=== PATIENT | female | born 1965 | race Hispanic/Latino ===

== ENCOUNTER 2017-01-26 22:58 | Emergency (ER) | payer OTHER ==
[~2017-01-26] VITALS: Ht 160 cm; Wt 88.6 kg
[~2017-01-26 22:58] MED LIST: KETO10TA PO; OMEP20CA11 PO
[2017-01-26 23:09] VITALS: BP 122/71; PULSE 74; RESP 16
[2017-01-27] MEDS ORDERED: HYDROmorphone 0.5 mg/0.5 mL iSecure Syringe IVPUSH PRN (00:25)
[2017-01-27] MEDS ORDERED: 0.9% Sodium Chloride 1,000 ML IV ONE (00:25)
[2017-01-27] MEDS ORDERED: Ondansetron 2 mg/mL 2 mL Inj IVPUSH PRN (00:25)
--- NOTE | 2017-01-27 00:25 | ED.REPORT ---
HPI-Abd Pain F 40 and Over Date of Service Jan 27, 2017 ED Provider: Gerardo Stinson DO Pt is a prediabetic 51 year old female with a recent cholecystectomy on 01/22/17 who presents to the ED complaining of abdominal pain onset yesterday. She c/o associated headache and nausea. She denies vomiting, diarrhea, , and fever. She denies any chest pain or shortness of breath. She denies any pleuritic symptoms. Nursing Notes Stated Complaint: POST OP ABDOMINAL AND CHEST PAIN Chief Complaint: Female Abdominal Pain Nursing Notes Reviewed: Yes Allergies: Coded Allergies: Iodinated Contrast- Oral and IV Dye (Verified Allergy, Mild, ITCHING, ) Had slight itching and scratchy throat after CT scan Scheduled Omeprazole (Omeprazole) 20 Mg Capsule.dr 20 MG PO DAILY Scheduled PRN Ketorolac Tromethamine (Ketorolac Tromethamine) 10 Mg Tablet 10 MG PO Q12H PRN PRN For Pain General Time Seen by MD: 00:24 Chief Complaint Abdominal pain Hx Obtained From: Patient Arrived By: Walk-in Sudden in Onset?: No Onset Occurred: Yesterday Symptom Duration: Since onset Location: : Abdomen upper Quality: Painful, Pressure Severity: Current: Moderate Severity: Maximum: Moderate Recent Healthcare: Recent doctor visit Similar Sx Previous: No Past Medical History Past Medical History Prediabetic Past Surgical History Arm surgery Tubal ligation Cholcystectomy on 01/22/17 RUE Family History Noncontributory Smoking History Former Smoker Social History Alcohol Use: Denies alcohol use Drug Use: Denies drug use Other Social History: Good social support, Local resident Ambulatory Status Independent Review of Systems Denies Constitutional: Denies: Fever Cardiovascular: Denies: Chest pain GI: Reports: Abdominal pain, Denies: Diarrhea, Vomiting Complete sys rev & neg: except as marked. Neurologic: Reports: Dizziness, Headache Physical Exam Vital Signs Vital Signs (First) Date Time Temp Pulse Resp B/P Pulse Ox O2 Delivery O2 Flow Rate FiO2 01/26/17 23:09 36.1 74 16 122/71 Room Air 01/27/17 03:30 97 Initial VS: Reviewed Head / Eyes: Atraumatic, Normocephalic, PERRL ENT: Mucous membranes moist, Conjunctiva normal, No scleral icterus Neck: Supple, Full range of motion Extremities: Vascular intact, Neuro intact Neurologic: Alert, Oriented, Nonfocal Psychiatric: Mood/affect normal, Behavior normal General/Constitutional: Awake, Alert, Cooperative, Not toxic appearing Respiratory / Chest: Atraumatic, Breath sounds NL, Breath sounds = bilat Cardiovascular: Heart rate NL, Regular rhythm, Heart sounds NL Abdomen: Atraumatic, Soft Moderate upper quadrant tenderness. Bruising near the umbilical. Ecchymosis infra umbilical access site. Back: Atraumatic, Inspection NL, Full range of motion Skin: Atraumatic, Color NL, Warm, Dry, Intact Well perfused Interpretation & Diagnostics Lab Results Interpretation Result Diagram: 01/27/17 0105 01/27/17 0105 Test 01/27/17 01:05 01/27/17 02:43 White Blood Count 13.4th/mm3 (3.8-10.1) Red Blood Count 4.60mil/mm3 (3.90-5.20) Hemoglobin 13.3g/dL (12.0-15.6) Hematocrit 40.3% (35.0-46.0) Mean Corpuscular Volume 87.6fL (81-100) Mean Corpuscular Hemoglobin 28.9pg (27.0-35.0) Mean Corpuscular Hemoglobin Concent 33.0% (32.0-37.0) Red Cell Distribution Width 14.0% (12.3-15.4) Platelet Count 236bil/L (150-400) Neutrophils (%) (Auto) 72.7% (40-74) Lymphocytes (%) (Auto) 14.1% (14-46) Monocytes (%) (Auto) 5.5% (4-12) Eosinophils (%) (Auto) 7.0% (0-5) Basophils (%) (Auto) 0.4% (0-3) Urine Color Yellow (YELLOW) Urine Appearance Clear (CLEAR,HAZY) Urine pH 6.5 (5.0-8.0) Urine Specific [place] 1.005 (1.003-1.035) Urine Protein Negativemg/dL (NEG,TRACE) Urine Glucose (UA) Negativemg/dL (NEGATIVE) Urine Ketones Negativemg/dL (NEGATIVE) Urine Occult Blood Negative (NEGATIVE) Urine Nitrite Negative (NEGATIVE) Urine Bilirubin Negative (NEGATIVE) Urine Urobilinogen Normalmg/dL (NORMAL) Urine Leukocyte Esterase Negative (NEGATIVE) Urine RBC 0-2/hpf (0-2) Urine WBC 0-5/hpf (0-5) Urine Epithelial Cells Moderate/hpf (NONE-MOD) Urine Crystals None seen (NONE SEEN) Urine Bacteria None/hpf (NONE-FEW) Urine Hyaline Casts None/lpf (NONE) Urine Granular Casts None seen (NONE SEEN) Urine Waxy Casts None seen (NONE SEEN) Urine Red Blood Cell Casts None seen (NONE SEEN) Urine White Blood Cell Casts None seen (NONE SEEN) Urine Mucus None seen (None Seen) Urine Trichomonas None seen (NONE SEEN) Urine Yeast None (NONE SEEN) Urine Culture Reflexed Not indicated Sodium Level 137mEq/L (134-144) Potassium Level 3.9mEq/L (3.5-5.2) Chloride Level 98mEq/L (97-108) Carbon Dioxide Level 23mmol/L (18-29) Blood Urea Nitrogen 7mg/dL (6-24) Creatinine 0.50mg/dL (0.57-1.00) Estimat Glomerular Filtration Rate 188mL/min (>59) Glucose Level 132mg/dL (60-99) Lactic Acid Level 0.7mmol/L (0.4-2.0) Calcium Level 9.4mg/dL (8.5-10.1) Magnesium Level 2.0mg/dL (1.6-2.6) Total Bilirubin 0.5mg/dL (0.0-1.2) Aspartate Amino Transf (AST/SGOT) 32U/L (0-50) Alanine Aminotransferase (ALT/SGPT) 48U/L (0-32) Alkaline Phosphatase 101U/L (25-150) Total Protein 8.0g/dL (6.4-8.4) Albumin 4.3g/dL (3.4-5.0) Lipase 21U/L (13-60) Hold Giordano Top Tube Received (Received) Troponin T < 0.010ug/L (0.0-0.011) ECG Interpretation Time: 02:31 Interpreted by: ED physician Normal ECG Interpretation: Normal ECG w/ rate of... (60) CT Abd / Pelvis Interpretation IMPRESSION: Status post cholecystectomy. Mild fatty straning in the region of the felipe hepatis. This could be secondary to recent surgical procedure. Possibility of low-grade bile leak not excluded and followup recommended. Mild bilateral lung base atelectasis. Fibroid uterus. Transmitted to ED at 02:05 by Farhan Maynard M.D. Study type: Abdominal CT no contrast Interpretation / Wet Read by: Interpret - Radiologist Re-Eval/Medical Decision Med Decision/Clinical Course Laboratory work shows leukocytosis. Mild transaminitis. No signs of pancreatitis. CT scan shows fluid in the gallbladder fossa which may be a persistent bile leak. I consulted with Dr. Rosendo Escamilla. 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 She would like us to discharge from home with pain medication and she will be seen tomorrow in the office for a HIDA scan. Elissa was medicated she looked and felt much better. Her abdomen was soft and much less tender. Her EKG was normal. Her laboratory work otherwise reassuring. Source of Hx: Old records Re-Evaluation/Progress : Time of Eval: 02:41 Re-Evaluation/Progress Note: Pt rechecked. Informed pt of plan for discharge. Pt understands and agrees with plan for discharge. F/U instructions and RTER warnings given. All questions addressed. Counseled Regarding: Diagnosis, Lab results, Need for follow-up, When/why to return to ED Discharge & Departure Primary Impression: Postoperative right upper quadrant abdominal pain Disposition: Home Discharge Condition All VS Reviewed: Yes Condition: Stable Patient Instructions: Acute Abdominal Pain (ED) Additional Instructions: The scan shows some fluid in your gallbladder fossa. This is of uncertain significance and needs follow up. Otherwise the scan looked good. Your labs are reassuring. You do have a mildly elevated wbc count. No signs of pancreatic injury. I consulted with Dr. Alma Escamilla (concrete batcher for Dr. Swenson) and she would like you to be seen in the office in follow up. Call the office first thing in the morning for a follow up appointment. Take one to two Stout every 6 hours as needed for pain. Do not drive tonight. Do not drive or drink alcohol or consume acetaminophen while taking the Stout. Return if any problems or any new or worsening symptoms. Referrals: Anirudh Hurley MD (PCP) Lubna Escamilla MD, Bruce C MD [place] Attestation Portions of this note were transcribed by Dayna Oneil. IDr. Stinson personally performed the history, physical exam and medical decision-making; I reviewed and confirmed the accuracy of the information in the transcribed note. Signed by: Nadia Jorge, 01/27/17 and 02:50. copies to: Anirudh Hurley MD; Lubna Escamilla MD; Justo Swenson MD, Todd P DO Jan 27, 2017 00:25 Dayna Schmidt Jan 27, 2017 00:32
[2017-01-27 01:20] LABS: BASOPHILS % (AUTO) 0.4 % (0-3); MONOCYTES % (AUTO) 5.5 % (4-12); Mean Corpuscular Hemoglobin 28.9 pg (27.0-35.0); Mean Corpuscular Volume 87.6 fL (81-100); NEUTROPHILS % (AUTO) 72.7 % (40-74); Platelet Count 236 bil/L (150-400)
[2017-01-27 01:31] LABS: APPEARANCE,URINE CLEAR (CLEAR,HAZY); COLOR,URINE YELLOW (YELLOW); OCCULT BLOOD,URINE NEGATIVE (NEGATIVE); PH,URINE 6.5 (5.0-8.0); UROBILINOGEN,URINE NORMAL (NORMAL)
[2017-01-27] MEDS ORDERED: _HYDROcodone/APAP 5-325 mg Tablet PO PRN (02:20)
[2017-01-27] MEDS ORDERED: _Ondansetron ODT 4 mg Tablet PO PRN (02:20)
[2017-01-27 03:30] VITALS: BP 131/76; PULSE 78; RESP 16; O2SAT 97
--- NOTE | 2017-01-27 09:11 | DRSVH ---
PROCEDURE: CT ABDOMEN AND PELVIS WITHOUT CONTRAST ([id number]) INDICATIONS: postoperative pain RUQ, contrast allergy TECHNIQUE: Noncontrast 5 mm thick sections acquired from the diaphragms to the symphysis. 5 mm coronal and sagi ttal reformats were then performed. For radiation dose reduction, the following was used: automated exposure control, adjustment of mA and/or kV according to patient size. COMPARISON: None. FINDINGS: Image quality: Excellent. ABDOMEN: Lung bases: Scarring/atelectasis present within the lung bases. Heart size is normal. Solid organs: Liver and spleen are normal in size. Gallbladder surgically absent and there is mild stranding and hazy attenuation within the gallbladder fossa. This could be due to recent postoperativ e changes, however technically indeterminate. No definite abscess or discrete fluid collection is see n. If there is clinical concern for bile leak, HIDA scan could be performed. Pancreas is normal in c ontours. No adrenal nodules. Kidneys are normal in size, without hydronephrosis or nephrolithiasis. Peritoneum and bowel: Unenhanced bowel loops demonstrate normal wall thickness and caliber. No free fluid or air. There are colonic diverticula. Appendix not visualized. The rectum is partially decom pressed otherwise unremarkable Nodes and vessels: No retroperitoneal or mesenteric adenopathy by size criteria. Aorta and inferior vena cava are normal in caliber. Miscellaneous: Fat-containing umbilical hernia PELVIS: Genitourinary: Bladder wall thickness is normal. There are presumed uterine fibroids. This could be further delineated with pelvic ultrasound as clinically necessary. Miscellaneous: No inguinal hernias or adenopathy. Bones: No suspicious bony lesions. No vertebral body compression fractures. IMPRESSION: Status post cholecystectomy, with presumed postoperative stranding and hazy attenuation seen in the g allbladder fossa although technically nonspecific. Please correlate clinically and with laboratory da ta. No discrete fluid collection identified. Uterine fibroids. Bibasilar scarring/atelectasis. Dictated by: Garrett Royal M.D. on 01/27/2017 at 9:00 Approved by: Grarett Royal M.D. on 01/27/2017 at 9:09
== END 2017-01-27 03:31 | disposition home or self-care (01) ==
LOC: SED 22:58
DX: G89.18 Other acute postprocedural pain (principal); R10.11 Right upper quadrant pain; R51 Headache; R11.0 Nausea; Z90.49 Acquired absence of other specified parts of digestive tract; Z87.891 Personal history of nicotine dependence
CPT/HCPCS: 36415; 74176; 80053; 81000; 81025; 83605; 83690; 83735; 84484; 85025; 93005; 96361; 96374; 96375; 99285; J1170; J1885; J2405; J7030

== ENCOUNTER → 2017-05-05 | Day surgery (SDC) | payer OTHER ==
[~2017-05-05] VITALS: Ht 160 cm; Wt 86.2 kg
[~2017-05-05] MED LIST changes: +0.9% Sodium Chloride 1,000 ML IV PRN; +CYCL10TA9 PO; +HYDR-4003 PO; +IBUP800T28 PO; -KETO10TA PO; -OMEP20CA11 PO; +Sodium Chloride LOK Flush 10 mL Syringe IV PRN; +fentaNYL-PF 50 mCg/mL 2 mL Inj IVPUSH PRN
[2017-05-05 10:38] VITALS: BP 135/76; PULSE 67; O2SAT 99
[2017-05-05 11:12] VITALS: BP 121/67; PULSE 69; RESP 16; O2SAT 95
[2017-05-05 11:22] VITALS: BP 112/65; PULSE 64; RESP 16; O2SAT 93
[2017-05-05 11:32] VITALS: BP 109/64; PULSE 61; RESP 16; O2SAT 97
--- NOTE | 2017-05-05 11:51 | ENDO ---
[address] [address] ENDOSCOPY PROCEDURE PATIENT: DEEPAK CORTES : 1965 MR#: [id number] ADMIT: 05/05/2017 JOB ID: [id number] PRIMARY PROVIDER: Mayuri Law MD PROCEDURE: Aborted EGD attempt. INDICATION: A 51-year-old female with symptoms of right upper quadrant pain of uncertain etiology. The patient was originally recommended in the clinic by Brianda Cardona to have both EGD and colonoscopy. She did not prep for the colonoscopy but wished to only proceed with the EGD. EQUIPMENT: GIF-H180. SEDATION: 6 mg Versed, 125 mcg fentanyl. Lidocaine swish and swallow. COMPLICATIONS: None identified. PROCEDURE INFORMATION: After the risks and benefits were explained, written and verbal informed consent was obtained. The patient was brought into the endoscopy suite and placed in the left lateral decubitus position. Sedation was achieved as above. The scope was introduced into the mouth through the bite block, but as soon as we positioned it in the posterior oropharynx, we could not get down into the region of the upper esophageal sphincter secondary to a tremendous gag reflex, and we therefore abandoned attempt at intubation for the patient's safety. The patient seemed to be sufficiently sedated when the scope was not in a position in the posterior oropharynx. We therefore did not feel comfortable applying further sedation in this case. The procedure was aborted. We called for anesthesia rescue and they were not available at this time. FINDINGS: As above. ENDOSCOPIC DIAGNOSIS: Aborted esophagogastroduodenoscopy attempt. RECOMMENDATIONS: Repeat EGD with anesthesia support. The patient will be offered another attempt at colonoscopy along with the EGD should she choose to proceed with bowel prep.
== END | disposition home or self-care (01) ==
LOC: END 00:27
PROVIDERS: ATTEND Internal Medicine Gastroenterology
DX: R10.11 Right upper quadrant pain (principal); K59.00 Constipation, unspecified; R73.03 Prediabetes; Z87.891 Personal history of nicotine dependence; Z53.8 Procedure and treatment not carried out for other reasons
CPT/HCPCS: 43235; 99152; J2250; J3010; J7030